=== PATIENT | female | born 1995 | race Caucasian/White ===

== ENCOUNTER 2017-01-22 04:50 | Emergency (ER) | payer SELFPAY ==
--- NOTE | 2017-01-22 05:12 | Emergency Department Record ---
History of Present Illness - General Chief complaint: Vomiting Stated complaint: NEED BLOOD TEST TO RULE OUT , NOT URINE Time Seen by Provider: 01/22/17 05:06 Source: Patient Mode of Arrival: Ambulatory - History of Present Illness Initial comments: The patient is here due to requesting a test to see if she is currently . She states she did have a normal menses ending 5 days ago but has been nauseated for one day. She did vomit twice in the last 24 hours. She presently denies any nausea, vomiting, abdominal pain, fever, dysuria or back pain. The patient states with her last she had multiple neg urine tests at a doctor's office and is requesting a blood test. MD complaint: Nausea Onset/Timin -: Days(s) Quality: Aching Consistency: Constant Improves with: None Worsens with: None Associated Symptoms: Nausea/vomiting - Related Data Previous Rx's Medication Instructions Recorded Ondansetron [Zofran Odt] 4 mg SL .Q4-6H PRN #5 tab.rapdis 01/22/17 Allergies Allergy/AdvReac Type Severity Reaction Status Date / Time No Known Drug Allergies Allergy Verified 01/22/17 05:01 Travel Screening - Travel/Exposure Within Last 30 Days Have you traveled within the last 30 days?: No Review of Systems Constitutional: Denies: Chills, Fever Eyes: Denies: Eye discharge ENT: Denies: Congestion Respiratory: Denies: Cough, Dyspnea Past Medical History - SOCIAL HISTORY Smoking Status: Current every day smoker Alcohol Use: None Drug Use: None - RESPIRATORY Hx Respiratory Disorders: No - CARDIOVASCULAR Hx Cardio Disorders: No - NEURO Hx Neuro Disorders: No - GI Hx GI Disorders: No - Hx Genitourinary Disorders: No - ENDOCRINE Hx Endocrine Disorders: No - MUSCULOSKELETAL Hx Musculoskeletal Disorders: No - PSYCH Hx Psych Problems: No - HEMATOLOGY/ONCOLOGY Hx Hematology/Oncology Disorders: No Family Medical History Any Significant Family History?: Yes *Diabetes Comment: Uncle Hx Heart Disease: Grandparents Physical Exam - General General Appearance: Alert, Oriented x3, Cooperative, No acute distress (The patient appears very healthy at this time and is very comfortable.) - Head Head exam: Atraumatic, Normocephalic, Normal inspection - Eye Eye exam: Normal appearance, PERRL - Neck Neck exam: Normal inspection, Full ROM. negative: Tenderness - Respiratory Respiratory exam: Normal lung sounds bilaterally. negative: Respiratory distress - Cardiovascular Cardiovascular Exam: Regular rate, Normal rhythm, Normal heart sounds - GI/Abdominal GI/Abdominal exam: Soft, Normal bowel sounds. negative: Distended, Guarding, Rebound, Rigid, Tenderness (The abdomen is very soft and nontender in all 4 quads.) - Extremities Extremities exam: Normal inspection, Full ROM, Normal capillary refill. negative: Tenderness - Neurological Neurological exam: Alert, Normal gait. negative: Abnormal gait Course Vital Signs 01/22/17 05:04 Temperature 98.0 F Pulse Rate [ 82 Pulse Ox Probe] Respiratory 18 Rate Blood Pressure 148/103 [Left Arm] Pulse Ox 98 - Reevaluation(s) Reevaluation #1: The patient is doing well. She denies any pain or nausea. I did explain to the patient that her test is neg. She is instructed to F/U with a PCP for recheck and to have her blood pressure rechecked also. 01/22/17 05:30 Disposition Disposition: Discharge Clinical Impression: Nausea Disposition: Home, Self-Care Condition: (1) Good Instructions: Acute Nausea and Vomiting (ED) Additional Instructions: Please use the Zofran for nausea. Please see your PCP for recheck next week and have your blood pressure rechecked also. Return to the ER for any abdominal pain , fever, or vomiting. Prescriptions: Ondansetron [Zofran Odt] 4 mg SL .Q4-6H PRN #5 tab.rapdis PRN Reason: Nausea Forms: Patient Portal Access Time of Disposition: 05:33 Quality - Quality Measures Quality Measures: N/A - Blood Pressure Screening View Details: Yes Does Patient Have Any of the Following: No Blood Pressure Classification: Hypertensive Reading Systolic Measurement: 130 Diastolic Measurement: 95 Screening for High Blood Pressure: < Pre-Hypertensive BP, F/U Documented > [ G8950] Pre-Hypertensive Follow-up Interventions: Referral to alternative/primary care provider.
[2017-01-22] MEDS ORDERED: ONDANSETRON 4 MG ODT TABLET SL ONE (05:18)
== END 2017-01-22 05:39 | disposition home or self-care (01) ==
LOC: ER 04:50
DX: R11.0 Nausea (principal); R03.0 Elevated blood-pressure reading, without diagnosis of hypertension
CPT/HCPCS: 81025; 99282

== ENCOUNTER 2019-03-05 15:46 | Emergency (ER) | payer MEDICAID ==
--- NOTE | 2019-03-05 16:17 | Emergency Department Record ---
History of Present Illness - General Chief complaint: Extremity Problem Stated complaint: RT ARM PAIN Time Seen by Provider: 03/05/19 16:11 Source: Patient Mode of Arrival: Ambulatory Limitations: No limitations - History of Present Illness Initial comments: 23 yo female presents with right wrist pain starting over the last week. She is not aware of a specific injury. She has pain with moving the wrist. No warmth, redness, weakness, numbness or tingling. No swelling. She did have a fracture of the wrist in the past. Pain radiates up the forearm. No cough, chest pain or shortness of breath. She notices the pain with use of her phone. MD Complaint: Extremity pain, Joint pain Onset/Timin -: Days(s) Location: Right, Arm History of Same: No -: Yes Arthralgia Radiation: Distal Severity scale (1-10): 7 Consistency: Constant Improves with: Nothing Worsens with: Nothing Associated Symptoms: Denies other symptoms - Related Data Home Medications Medication Instructions Recorded Confirmed Last Taken Metoclopramide HCl 10 mg PO QID 03/05/19 03/05/19 Unknown Metoprolol Tartrate 25 mg PO DAILY 03/05/19 03/05/19 Unknown Nifedipine [Nifedipine ER] 60 mg PO DAILY 03/05/19 03/05/19 Unknown Pantoprazole Sodium [Protonix] 40 mg PO DAILY 03/05/19 03/05/19 Unknown Allergies Allergy/AdvReac Type Severity Reaction Status Date / Time cefaclor [From Ceclor] Allergy FLUSHING Verified 03/05/19 16:11 Travel Screening - Travel/Exposure Within Last 30 Days Have you traveled within the last 30 days?: No Review of Systems Constitutional: Denies: Chills, Fever, Malaise, Weakness Eyes: Denies: Eye discharge ENT: Denies: Congestion, Throat pain Respiratory: Denies: Cough, Dyspnea Cardiovascular: Denies: Chest pain, Palpitations, Syncope Endocrine: Denies: Fatigue, Polydipsia, Polyuria Gastrointestinal: Reports: Abdominal pain, Nausea, Vomiting, Other (Chronic pain, scheduled for gall bladder removal in 3 weeks) Genitourinary: Denies: Dysuria, Urgency Musculoskeletal: Reports: Arthralgia Skin: Denies: Bruising, Change in color, Rash Neurological: Denies: Headache Psychiatric: Denies: Anxiety Hematological/Lymphatic: Denies: Easy bleeding, Easy bruising Past Medical History - SOCIAL HISTORY Smoking Status: Current every day smoker - RESPIRATORY Hx Respiratory Disorders: No - CARDIOVASCULAR Hx Cardio Disorders: No - NEURO Hx Neuro Disorders: No - GI Hx GI Disorders: No - Hx Genitourinary Disorders: No - ENDOCRINE Hx Endocrine Disorders: No - MUSCULOSKELETAL Hx Musculoskeletal Disorders: No - PSYCH Hx Psych Problems: No - HEMATOLOGY/ONCOLOGY Hx Hematology/Oncology Disorders: No Family Medical History Any Significant Family History?: Yes *Diabetes Comment: Uncle Hx Heart Disease: Grandparents Physical Exam - General General Appearance: Alert, Oriented x3, Cooperative, No acute distress Limitations: No limitations - Head Head exam: Atraumatic, Normal inspection - Eye Eye exam: Normal appearance, PERRL. negative: Conjunctival injection, Scleral icterus - ENT ENT exam: Normal exam, Mucous membranes moist Ear exam: Normal external inspection Nasal Exam: Normal inspection Mouth exam: Normal external inspection - Neck Neck exam: Normal inspection - Respiratory Respiratory exam: Normal lung sounds bilaterally. negative: Respiratory distress, Rhonchi, Stridor, Wheezes - Cardiovascular Cardiovascular Exam: Regular rate, Normal rhythm, Normal heart sounds Peripheral Pulses: 2+: Radial (R), Radial (L) - Extremities Extremities exam: Normal inspection, Full ROM, Normal capillary refill, Tenderness, Other (Pain with forced thumb flexion, no pain with finger flexion/estension. Tender radial side at distal radius. No swelling, no warmth, normal inspection) - Neurological Neurological exam: Alert, Oriented X3 - Psychiatric Psychiatric exam: Normal affect, Normal mood - Skin Skin exam: Dry, Intact, Normal color, Warm Course Vital Signs 03/05/19 16:05 Temperature 98.3 F Pulse Rate 79 Respiratory 18 Rate Blood Pressure 148/101 Pulse Ox 99 - Reevaluation(s) Reevaluation #1: 03/05/19 16:16 Examination is consistent with tendonitis 03/05/19 17:17 XR was reviewed No acute process We discussed likely tendonitis She will be treated conservatively with splint and ice. I recommended follow up in one to two weeks with her PCP for a recheck if the pain is still there Disposition Disposition: Discharge Clinical Impression: Tendonitis Disposition: Home, Self-Care Condition: (1) Good Instructions: Tendinitis (ED) Additional Instructions: Ice the wrist 3-4 times daily for 20 minutes Use the splint to wrest the tendon for 7-10 days Call your doctor for a recheck if the pain is not better in the next week Be seen if you have redness, swelling, fever, worse Forms: Patient Portal Access Time of Disposition: 17:19 Quality - Quality Measures Quality Measures: N/A - Blood Pressure Screening Does Patient Have Any of the Following: No Blood Pressure Classification: Hypertensive Reading Systolic Measurement: 148 Diastolic Measurement: 101 Screening for High Blood Pressure: < Pre-Hypertensive BP, F/U Documented > [G8950] Pre-Hypertensive Follow-up Interventions: Referral to alternative/primary care provider.
--- NOTE | 2019-03-06 07:57 | RADIOLOGY REPORT ---
EXAM: RIGHT WRIST, TWO VIEWS HISTORY: RIGHT WRIST PAIN WITHOUT INJURY. TECHNIQUE: PA and lateral views of the right wrist were obtained. Comparison: None. Encounter: Initial. FINDINGS: No bone or joint abnormality is identified. IMPRESSION: NEGATIVE RIGHT WRIST EXAMINATION. JOB NUMBER: [id number]
== END 2019-03-05 17:45 | disposition home or self-care (01) ==
LOC: ER 15:46
DX: M67.833 Other specified disorders of tendon, right wrist (principal)
CPT/HCPCS: 99283